=== PATIENT | female | born 1980 | race African-American/Black ===

== ENCOUNTER 2018-03-24 20:14 | Emergency (ER) | payer OTHER ==
[~2018-03-24] VITALS: Ht 160 cm; Wt 65.0 kg
[2018-03-24 20:45] VITALS: BP 109/68
== END 2018-03-25 00:27 | disposition left against medical advice (07) ==
LOC: ER 20:14
DX: R55 Syncope and collapse (principal)
CPT/HCPCS: 93005; 99283